=== PATIENT | female | born 1995 | race Hispanic/Latino ===

== ENCOUNTER 2021-12-10 20:12 | Emergency (ER) | payer BC, OTHER ==
--- OUTSIDE RECORDS SUMMARY | 2021-12-10 20:16 | XMS REPORT | Continuity of Care Document ---
:1995 Author Organization [facility] t Address [address] [place] [address] Care Team Providers Name Role Phone Pcp, Patient Does Not Have A Primary Care Physician [phone] Zaheer Arias Attending Clinician Unavailable Narendra Dixon MD Attending Clinician NARENDRA DIXON Attending Clinician Unavailable GC_CCOB_Khjessica_M Attending Clinician Unavailable Nohemi López Attending Clinician [phone] José Luis HARMON, [place] Mondragon Attending Clinician Unavailable Claudio Gordon Attending Clinician CLAUDIO SIMONS Attending Clinician Unavailable Doctor Unassigned, [place] Attending Clinician Unavailable Saranya Wilson Attending Clinician SARANYA AVITIA Attending Clinician Unavailable Lab, Adc Fam Pob I Attending Clinician Unavailable Kiah Alvarez Attending Clinician KIAH ALBA Attending Clinician Unavailable GC_CCOB_Khjessica_M Admitting Clinician Unavailable Payers Payer Name Policy Type Policy Number Effective Date Expiration Date S ray[place] [id number] 2020 00:00:00 [place] Problems Condition Condition Condition Status Onset Resolution Last Treating Co mments Source Name Details Category Date Date Treatment Clinician Date No known No known Disease Unive rs active active ity of problems problems [facility] Allergies, Adverse Reactions, Alerts Allergy Allergy Status Severity Reaction(s) Onset Inactive Treating Comm ents Source Name Type Date Date Clinician NO KNOWN Drug Active Univers ALLERGIE Class ity of S [facility] Social History Social Habit Start Date Stop Date Quantity Comments Source History SDOH University o f Alcohol Frequency [place] [facility] History SDOH University o f Alcohol Std [place] [facility] History SDOH University o f Alcohol Binge [place] [facility] Sex Assigned At Universit y of [facility] Exposure to 2021-11-30 2021-12-10 Not sure [facility] 00:00:00 14:37:00 [facility] (event) [place] Alcohol intake 2021-12-10 2021-12-10 Current drinker Unive rsity of 00:00:00 00:00:00 of alcohol [facility] (finding) [place] Tobacco use and 2014-09-22 2014-09-22 Smokeless tobacco Un iversity of exposure 00:00:00 00:00:00 non-user [facility] Alcohol Comment 2014-09-22 2014-09-22 socially Universit y of 00:00:00 00:00:00 [facility] Smoking Status Start Date Stop Date Source Unknown if ever smoked [facility] Never smoked tobacco [facility] Medications Ordered Filled Start Stop Current Ordering Indication Dosage Frequency Signature Comments Components Source Medication Medication Date Date Medication? Clinician (SIG) Name Name albuterol 2021- No [id number] 2{puff} Inhale 2 Univers 90 08-27 06-17 Puffs ity of mcg/actuati 00:00[place] 04:59 [place] 6 [place] :00 (six) Medical hours as Branch needed for Wheezing or Shortness of Breath for up to 10 days. albuterol 2021- No [id number] 2{puff} Inhale 2 Univers 90 08-27 06-17 Puffs ity of mcg/actuati 00:00: 04:59 [place] inhal[place] :00 (six) Medical hours as Branch needed for Wheezing or Shortness of Breath for up to 10 days. bromphenira 2021- No [id number] 5mL Take 5 mL Univers mine-pseudo 08-27 by mouth 4 i ty of ephedrine-D 00:00: 04:59 (four) Guy as M 00 :00 times Medical mg/5 mL daily as Branch syrup needed for Congestion /Allergies for up to 5 days. bromphenira 2021- No [id number] 5mL Take 5 mL Univers mine-pseudo 08-27 by mouth 4 i ty of ephedrine-D 00:00: 04:59 (four) Guy as M 00 :00 times Medical mg/5 mL daily as Branch syrup needed for Congestion /Allergies for up to 5 days. cyclobenzap 2020-03 Yes [id number] 5mg Take 1 Univers rine 5 mg 2-10 tablet by ity o f tablet 00:00: mouth at [place] [address] bedtime. Medical Branch cyclobenzap 2020-03 Yes [id number] 5mg Take 1 Univers rine 5 mg 2-10 tablet by ity o f tablet 00:00: mouth at [place] [address] bedtime. Medical Branch cyclobenzap 2020-03 Yes [id number] 5mg Take 1 Univers rine 5 mg 2-10 tablet by ity o f tablet 00:00: mouth at [place] [address] bedtime. Medical Branch cyclobenzap 2020-03 Yes [id number] 5mg Take 1 Univers rine 5 mg 2-10 tablet by ity o f tablet 00:00: mouth at [place] 00 bedtime. Medical Branch cyclobenzap 2020-03 Yes [id number] 5mg Take 1 Univers rine 5 mg 2-10 tablet by ity o f tablet 00:00: mouth at [place] 00 bedtime. Medical Branch sulfamethox 2020-03- No [id number] 1{tbl} Take 1 Univers azole-trime 2-10 12-14 tablet by it y of thoprim 00:00: 05:59 mouth 2 [place] (BACTRIM 00 :00 (two) Medical DS) 800-160 times Branch mg per daily for tablet 3 days. buPROPion Yes [id number] 150mg Take 1 Tab Univers XL 7-02 by mouth ity of ([place] XL[place] 150 mg 00 Medical 24 hr Branch tablet buPROPion Yes [id number] 150mg Take 1 Tab Univers XL 7-02 by mouth ity of ([place] XL[place] 150 mg 00 Medical 24 hr Branch tablet buPROPion Yes [id number] 150mg Take 1 Tab Univers XL 7-02 by mouth ity of ([place] XL[place] 150 mg 00 Medical 24 hr Branch tablet buPROPion Yes [id number] 150mg Take 1 Tab Univers XL 7-02 by mouth ity of ([place] XL[place] 150 mg 00 Medical 24 hr Branch tablet buPROPion Yes [id number] 150mg Take 1 Tab Univers XL 7-02 by mouth ity of ([place]. [place] XL[place] 150 mg 00 Medical 24 hr Branch tablet buPROPion Yes [id number] 150mg Take 1 Tab Univers XL 7-02 by mouth ity of ([place]. [place] XL[place] 150 mg 00 Medical 24 hr Branch tablet buPROPion Yes [id number] 150mg Take 1 Tab Univers XL 7-02 by mouth ity of ([place]. [place] XL[place] 150 mg 00 Medical 24 hr Branch tablet Vital Signs Vital Name Observation Time Observation Value Comments Source Systolic blood 2021-12-10 19:46:00 145 mm[Hg] [facility] Diastolic blood 2021-12-10 19:46:00 91 mm[Hg] [facility] [place] Heart rate 2021-12-10 19:39:00 71 /min [facility] Body temperature 2021-12-10 19:39:00 36.5 Johanna [facility] Respiratory rate 2021-12-10 19:39:00 15 /min [facility] Body height 2021-12-10 19:39:00 177.8 cm [facility] Body weight 2021-12-10 19:39:00 162.297 kg [facility] BMI 2021-12-10 19:39:00 51.34 kg/m2 Universi ty of [place] [facility] Oxygen saturation in 2021-12-10 19:39:00 98 /min University of Arterial blood by [facility] Pulse oximetry Branch Systolic blood 2021-08-28 00:24:00 121 mm[Hg] Univer sity of pressure [facility] Diastolic blood 2021-08-28 00:24:00 73 mm[Hg] Unive rsity of pressure [facility] Heart rate 2021-08-28 00:24:00 105 /min [facility] Body temperature 2021-08-28 00:24:00 37.22 Johanna Univ ersity of [facility] Respiratory rate 2021-08-28 00:24:00 16 /min Univ ersity of [facility] Body height 2021-08-28 00:24:00 177.8 cm [facility] Body weight 2021-08-28 00:24:00 183.707 kg [facility] BMI 2021-08-28 00:24:00 58.11 kg/m2 [facility] Oxygen saturation in 2021-08-28 00:24:00 95 /min University of Arterial blood by [facility] Pulse oximetry Branch Systolic blood 2021-03-02 23:03:00 137 mm[Hg] Univer sity of pressure [facility] Diastolic blood 2021-03-02 23:03:00 84 mm[Hg] Unive rsity of pressure [facility] Heart rate 2021-03-02 23:03:00 99 /min [facility]i [facility] Body temperature 2021-03-02 23:03:00 37.89 Johanna Univ ersity of [facility] Respiratory rate 2021-03-02 23:03:00 18 /min Univ ersity of [facility] Body height 2021-03-02 23:03:00 180.3 cm [facility] Body weight 2021-03-02 23:03:00 184.614 kg [facility] BMI 2021-03-02 23:03:00 56.76 kg/m2 [facility] Oxygen saturation in 2021-03-02 23:03:00 98 /min University of Arterial blood by [facility] Pulse oximetry Branch Systolic blood 2020-04-04 23:11:00 134 mm[Hg] Univer sity of pressure [facility] Diastolic blood 2020-04-04 23:11:00 98 mm[Hg] Unive rsity of pressure [facility] Heart rate 2020-04-04 23:11:00 100 /min [facility] Body temperature 2020-04-04 23:11:00 37.06 [facility]anna [facility] height 2020-04-04 23:11:00 180.3 cm [facility] Body weight 2020-04-04 23:11:00 156.491 kg [facility] BMI 2020-04-04 23:11:00 48.12 kg/m2 [facility] Oxygen saturation in 2020-04-04 23:11:00 96 /min University Arterial blood by [facility] Pulse oximetry Branch Procedures Procedure Date / Time Performing Clinician Source Performed ASSIGNMENT OF BENEFITS 2021-08-28 00:19:57 Doctor Unassigned, [facility] [place] [facility] POCT URINALYSIS 2021-03-02 23:12:00 Raisa Lee [facility] NO SHOW OR MISSED 2021-03-02 22:57:28 Doctor Unassigned, [facility] APPOINTMENT POLICY [place] [facility] h ACKNOWLEDGEMENT POCT FLU A AND B 2020-04-04 23:53:00 Sadi [facility] (MOLECULAR) [facility] POCT GRP A STREP 2020-04-04 23:52:00 Sadi [facility] (MOLECULAR) [facility] Encounters Start End Encounter Admission Attending Care Care Encounter Source Date/Time Date/Time Type Type Clinicians Facility Department ID 2021-10-24 Out[facility] [id number] Common 16:02:03 Zaheer [facility] 2021-09-28 Outpatient Arias, [facility] [id number] Common 08:19:02 Zaheer [id number] [facility] 2021-09-27 Outpatient Arias, [facility] [id number] Common 10:31:03 Zaheer [id number] [facility] 2021-12-10 2021-12-10 Urgent [facility] [id number] Univers 14:40:00 15:00:00 Care [facility] [id number] it y of [place] [id number] Guy as BIJU?BLEA [id number] [address] MEDICAL OFFICE BUILDING 2021-12-10 2021-12-10 Outpatient R [facility] [id number] Univers 14:40:00 14:40:00 [id number] y [facility] 2021-12-10 2021-12-10 [facility] [id number] Univers 14:40:00 14:40:00 [facility] 2021-09-27 2021-09-27 ambulatory [facility] [id number] Common 00:00:00 00:00:00 [facility] 2021-09-17 2021-09-17 Outpatient GC_CCOB_Kha PRIV PRIV [id number] [facility] 12:59:00 12:59:00 n_M [id number] Medica l 2021-08-30 2021-08-30 Outpatient GC_CCOB_Kha PRIV PRIV [id number] [facility] 04:38:00 04:38:00 n_M [id number] Medica l 2021-08-30 2021-08-30 Outpatient López, PRIV PRIV [id number] 00:00:00 00:00:00 Nohemi [id number] 2021-08-28 2021-08-28 Letter JOSSY Ordonez [id number] Univers 00:00:00 00:00:00 (Out) [place] [id number] it y of [facility] [id number] Guy as [id number] [address] 2021-08-27 2021-08-27 Urgent [facility] [id number] Univers 20:20:00 20:20:00 Care Claudio [facility] [id number] ity of [place] [id number] Guy as BIJU?BLEA [id number] Me robert [address] MEDICAL OFFICE BUILDING 2021-08-27 2021-08-27 Outpatient R KRISTYN, [facility] [id number] Univers 20:20:00 19:42:52 CLAUDIO ity o f [facility] 2021-08-27 2021-08-27 Outpatient R [facility] [id number] Univers 19:20:00 19:20:00 [id number] ity of [facility] 2021-08-27 2021-08-27 Orders Doctor FENTON [id number] Univers 00:00:00 00:00:00 Only Unassigned, DANIELE [id number] ity of [place] [facility] [id number] Guy as [id number] [address] 2021-08-17 2021-08-17 Outpatient GC_CCOB_Kha PRIV PRIV [id number] [facility] 01:24:00 01:24:00 n_M [id number] Medica l 2021-08-09 2021-08-09 Outpatient GC_CCOB_Kha PRIV PRIV [id number] [facility] 04:17:00 04:17:00 n_M [id number] Medica l 2021-08-09 2021-08-09 Outpatient López, PRIV PRIV [id number] 00:00:00 00:00:00 Nohemi [id number] 2021-08-05 2021-08-05 Outpatient GC_CCOB_Kha PRIV PRIV [id number] [facility] 01:11:00 01:11:00 n_M [id number] Medica l 2021-08-05 2021-08-05 Outpatient GC_CCOB_Kha PRIV PRIV [id number] [facility] 01:11:00 01:11:00 n_M [id number] Medica l 2021-07-30 2021-07-30 Outpatient GC_CCOB_Kha PRIV PRIV [id number] [facility] 10:44:00 10:44:00 n_M [id number] Medica l 2021-03-02 2021-03-02 Outpatient R ZACK [facility] [id number] Univers 17:00:00 17:38:09 NARENDRA ity [facility] 2021-03-02 2021-03-02 [facility] [id number] Univers 16:59:05 17:19:05 Care Narendra [facility] [id number] it y of [place] [id number] Guy as BIJU?BLEA [id number] Ut rauldeborah HARRY [address] [place] MEDICAL OFFICE BUILDING 2021-03-02 2021-03-02 Outpatient R [facility] [id number] Univers 17:00:00 17:00:00 [id number] ity [facility] 2021-03-02 2021-03-02 Orders Doctor JOSSY 1.2.840.114 [id number] Univers 00:00:00 00:00:00 Only Unassigned, DANIELE [id number] ity of [place] [facility] [id number] Guy as [id number] [address] 2020-04-04 2020-04-04 Kd [facility] [id number] Univers 16:59:31 18:18:05 Care Saranya [facility] [id number] it y of [place] [id number] Guy as Professio [id number] 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 [id number] [id number] Univers 13:36:08 13:51:08 Visit Kiah [facility] [id number] ity of [place] [id number] Guy as Professio [id number] Ut dicvt nal [address] [place] [address] 2020-04-032020-04-03 Outpatient R LEAH, [facility] [id number] Univers 13:35:00 13:35:00 KIAH anderson of [facility] Results Test Description Test Time Test Comments Results Result Comments Source POCT URINALYSIS W SPECIFIC GRAVITY 2021-03-02 23:13:00 Test Item Value Reference Range Interpretation Comme nts POCT U SP GRAV (test code = 1.020 mg/dl 1.005-1.025 A 3255) POCT PH U (test code = 3254) 5 mg/dl 5-8 POCT U LEUK EST (test code = negative Negative - Negative 3263) POCT U NIT (test code = 3262) negative Negative - Negative POCT U PROT (test code = 3259) negative Negative - Negative POCT U GLU (test code = 3256) negative Negative - Negative POCT U KETONE (test code = negative Negative - Negative 3258) POCT U UROBILI (test code = normal 0.2-1 3260) POCT U BILI (test code = 3261) negative Negative - Negative POCT U BLD (test code = 3257) negative Negative - Negative POCT U COLOR (test code = 3266) dark POCT U APPEAR (test code = clear 3267) BRAVO (test code = BRAVO) accurate development and interpretation of all internal controls Lab Interpretation (test code = Abnormal 24500-0) [facility] GRP A STREP (MOLECULAR)2020-04-05 00:03:00 Test Item Value Reference Range Interpretation Comments POCT GP A STREP (test code = negative Negative - Negative 46878-4) Lab Interpretation (test code = Normal 28531-0) [facility]-04-05 00:03:00 Test Item Value Reference Range Interpretation Comments POCT INFLUENZA A (test code = negative Negative - Negative 3840) POCT INFLUENZA B (test code = negative Negative - Negative 3841) Lab Interpretation (test code = Normal 72421-8) [facility]
[2021-12-10 21:11] LABS: Absolute Lymphocytes (CBC) 1.8 K/uL (0.7-4.9); Hematocrit 39.1 % (36.0-45.0); Lymphocytes % 17.4 % (15.3-44.8); MPV 10.9 fL (7.6-11.3)
[2021-12-10 21:11] LABS: Urine Blood Negative (Negative); Urine Glucose Negative (Negative); Urine Protein 1+ (Negative); Urine Specific Gravity >=1.030 (1.005-1.030); Urine pH 5.5 (5.0-7.0)
[2021-12-10 21:24] LABS: Potassium 3.5 mmol/L (3.5-5.1)
[2021-12-10 21:46] LABS: Urine Bacteria 20-50 /HPF (<20); Urine Crystals Unidentified Few /HPF (None Seen); Urine Mucus 4+ /HPF (None Seen); Urine RBC <5 /HPF (None Seen)
--- NOTE | 2021-12-10 22:14 | RAD REPORT ---
EXAM DESCRIPTION: CT - Stone Protocol - 12/10/2021 9:54 pm CLINICAL HISTORY: Abdominal pain. Urinary retention COMPARISON: None. TECHNIQUE: Computed axial tomography of the abdomen pelvis was obtained without oral or IV contrast. Lack of IV and oral contrast limits evaluation of solid organs, appendix, bowel, and vessels. [place] reformatted images were obtained and reviewed. All CT scans are performed using dose optimization technique as appropriate and may include automated exposure control or mA/KV adjustment according to patient size. FINDINGS: Mild left hydronephrosis. Tiny bilateral renal calculi. 2 millimeter calculus left UVJ. Fo rod catheter within the bladder. Fatty liver Spleen, pancreas and adrenals unremarkable. Postsurgical changes involve stomach There is no evidence of diverticulitis. The appendix appears normal Spondylosis L5-S1 IMPRESSION: 2 millimeter calculus left UVJ resulting in mild left hydronephrosis
--- NOTE | 2021-12-10 23:20 | EDPHYS ---
Physician Documentation [facility] Name: Mylene Ty Age: 26 yrs Sex: Female : 1995 Arrival Date: 12/10/2021 Time: 20:19 Bed 17 Private MD: ED Physician Peter Phillips HPI: 12/10 23:17 This 26 yrs old Female presents to ER via Ambulatory with complaints of kb Urinary Problem. 23:17 The patient presents with urinary symptoms, urinary retention. Onset: The kb symptoms/episode began/occurred today. Modifying factors: The symptoms are alleviated by nothing, the symptoms are aggravated by nothing. Associated signs and symptoms: Pertinent positives: urinary retention, suprapubic pain, Pertinent negatives: dysuria, fever. Severity of symptoms: At their worst the symptoms were moderate, in the emergency department the symptoms are unchanged. The patient has not experienced similar symptoms in the past. The patient has not recently seen a physician. Pt states she hasn't urinated since 1900 yesterday and is having suprapubic pain/fullness. 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 - Social history:: Smoking status: Patient denies any tobacco usage or history of. ROS: 23:16 Constitutional: Negative for fever, chills, and weight loss. kb 23:16 : Positive for urinary retention and suprapubic pain. 23:16 All other systems are negative. Exam: 23:16 Constitutional: This is a well developed, well nourished patient who is awake, alert, kb and in no acute distress. Head/Face: Normocephalic, atraumatic. ENT: Moist Mucous membranes Cardiovascular: Regular rate and rhythm with a normal S1 and S2. No gallops, murmurs, or rubs. No pulse deficits. Respiratory: Respirations even and unlabored. No increased work of breathing. Talking in full sentences Skin: Warm, dry with normal turgor. Normal color. MS/ Extremity: Pulses equal, no cyanosis. Neurovascular intact. Full, normal range of motion. Neuro: Awake and alert, GCS 15, oriented to person, place, time, and situation. Moves all extremities. Normal gait. Psych: Awake, alert, with orientation to person, place and time. Behavior, mood, and affect are within normal limits. 23:16 Abdomen/GI: Inspection: abdomen appears normal, Bowel sounds: normal, in all quadrants, Palpation: soft, in all quadrants, moderate abdominal tenderness, in the suprapubic area. Vital Signs: 20:22 BP 162 / 76; Pulse 72; Resp 18 S; Temp 97.3(TE); Pulse Ox 100% on R/A; Weight 161.93 kg as6 (R); Height 5 ft. 11 in. (180.34 cm) (R); Pain 8/; 12/11 01:27 BP 151 / 79; Pulse 55; Resp 16; Pulse Ox 99% ; ja4 12/10 20:22 Body Mass Index 49.79 (161.93 kg, 180.34 cm) as6 MDM: 12/10 20:26 Patient medically screened. kb 23:15 Data reviewed: vital signs, nurses notes. Data interpreted: Pulse oximetry: on room air kb is 100 %. Interpretation: normal. Counseling: I had a detailed discussion with the patient and/or guardian regarding: the historical points, exam findings, and any diagnostic results supporting the discharge/admit diagnosis, lab results, radiology results, the need for outpatient follow up, a urologist, to return to the emergency department if symptoms worsen or persist or if there are any questions or concerns that arise at home. 12/11 00:59 ED course: Pt had one episode of hematemesis. Call placed to Dr Suarez's call service. kb Awaiting callback. [facility] [phone]. 01:05 ED course: Callback received from Dr Suarez's associate. Recommends protonix and outpatient kb follow up with Dr Suarez. Pt will call tomorrow for follow up and return for any more episodes of hematemesis. . 12/10 20:27 Order name: Urine Microscopic Only; Complete Time: 21:53 kb 12/10 20:27 Order name: CBC with Diff; Complete Time: 21:32 kb 12/10 20:27 Order name: Basic Metabolic Panel; Complete Time: 21:32 kb 12/10 21:12 Order name: Urine Dipstick-Ancillary; Complete Time: 21:13 EDMS 12/10 21:31 Order name: Urine --Ancillary (enter results); Complete Time: 21:53 ja4 12/10 21:02 Order name: CT Stone Protocol; Complete Time: 22:24 kb 12/11 00:19 Order name: Gastric Occult Blood; Complete Time: 00:39 EDMS 12/10 20:27 Order name: Urine Dipstick-Ancillary (obtain specimen); Complete Time: 21:30 kb 12/10 20:27 Order name: Urine Test (obtain specimen); Complete Time: 21:30 kb 12/10 20:27 Order name: Bladder Scanner; Complete Time: 21:30 kb 12/10 20:27 Order name: Cerda; Complete Time: 21:30 kb 12/10 20:27 Order name: IV Start; Complete Time: 21:30 kb 12/10 23:16 Order name: Cerda: remove; Complete Time: 00:30 kb 12/10 23:38 Order name: Gastrocult kb Administered Medications: 12/10 23:40 Drug: Magnesium Sulfate 1 grams Route: IVPB; Infused Over: 1 hrs; [address]; 23:40 Drug: Flomax (tamsulosin) 0.4 mg Route: PO; [facility] 23:40 Drug: NS 0.9% 1000 ml Route: IV; Rate: 1000 ml; Site: left antecubital; [facility] 23:40 Drug: Ketorolac 15 mg Route: IVP; Site: left antecubital; [facility] 23:40 Drug: Zofran (Ondansetron) 4 mg Route: IVP; Site: left antecubital; [facility] 23:41 Drug: Rocephin (cefTRIAXone) 1 grams Route: IV; Rate: calculated rate; Site: [facility]; 12/11 01:20 Drug: ProTONIX (pantoprazole) 40 mg Route: IVP; Site: left antecubital; [facility] Disposition: 03:23 Co-signature as Attending Physician, Peter MACIAS was immediately available onsite ms3 in the emergency department for consultation in the care of the patient. Disposition Summary: 12/11/21 01:06 Discharge Ordered Location: Home(12/11/21 01:06) kb Condition: Stable(12/11/21 01:06) kb Diagnosis - Calculus of ureter(12/11/21 01:06) kb - Hematemesis kb - UTI/ Urinary tract infection, site not specified kb Followup: kb - With: Emergency Department - When: As needed - Reason: Worsening of condition Followup: kb - With: Private Physician - When: 2 - 3 days - Reason: Recheck today's complaints, Continuance of care, Re-evaluation by your physician Discharge Instructions: - Discharge Summary Sheet kb - Hematemesis kb - Kidney Stones, [id number] kb Forms: - Medication Reconciliation Form kb - Thank You Letter kb - Antibiotic Education kb - Prescription Opioid Use kb - Work release form ja4 Prescriptions: - Flomax 0.4 mg Oral capsule - take 1 capsule by ORAL route once daily 1/2 hour following the same meal each kb day; 10 capsule; Refills: 0, Product Selection Permitted - Protonix 40 mg Oral Tablet - take 1 tablet by ORAL route once daily; 30 tablet; Refills: 0, Product kb Selection Permitted - Zofran 4 mg Oral Tablet - take 1 tablet by ORAL route every 6 hours As needed; 20 tablet; Refills: 0, kb Product Selection Permitted - Augmentin 875-125 mg Oral Tablet - take 1 tablet by ORAL route every 12 hours for 10 days; 20 tablet; Refills: 0, kb Product Selection Permitted Signatures: Dispatcher [employer] EDMelody Sun, CHECO ARRIOLAP-Peter Liu DO DO ms3 Sage Laurent RN RN as6 Barry Izaguirre RN RN ja4 Corrections: (The following items were deleted from the chart) 00:48 12/10 23:19 Home kb kb 12/11 00:48 12/10 23:19 Stable kb kb 12/11 00:48 12/10 23:19 Calculus of ureter kb kb
--- NOTE | 2021-12-10 23:20 | ER ---
Nurse's Notes [facility] Name: Mylene Ty Age: 26 yrs Sex: Female : 1995 Arrival Date: 12/10/2021 Time: 20:19 Bed 17 Private MD: Diagnosis: Calculus of ureter;Hematemesis;UTI/ Urinary tract infection, site not specified Presentation: 12/10 20:22 Chief complaint: Patient states: "I haven't been able to pee since yesterday about 7 as6 pm". Coronavirus screen: At this time, the client does not indicate any symptoms associated with coronavirus-19. Ebola Screen: No symptoms or risks identified at this time. Initial Sepsis Screen: Does the patient meet any 2 criteria? No. Patient's initial sepsis screen is negative. Does the patient have a suspected source of infection? No. Patient's initial sepsis screen is negative. Risk Assessment: Do you want to hurt yourself or someone else? Patient reports no desire to harm self or others. Onset of symptoms was December 09, 2021. 20:22 Method Of Arrival: Ambulatory as6 20:22 Acuity: ZAIRE 4 as6 Triage Assessment: 20:27 General: Appears uncomfortable, Behavior is calm, cooperative. Pain: Complains of pain as6 in suprapubic area. : Reports inability to void, since 12/09/21. 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 - Social history:: Smoking status: Patient denies any tobacco usage or history of. Screenin:23 Abuse screen: Denies threats or abuse. Nutritional screening: No deficits noted. ja4 Tuberculosis screening: No symptoms or risk factors identified. Fall Risk IV access (20 points). Assessment: 21:22 General: Appears uncomfortable, obese, Behavior is calm, cooperative, appropriate for ja4 age. Pain: Complains of pain in pelvis, bladder area Pain currently is 6 out of 10 on a pain scale. Pain began 2-3 days ago. Neuro: No deficits noted. : Bladder is distended Reports inability to void, pain in suprapubic area. Vital Signs: 20:22 BP 162 / 76; Pulse 72; Resp 18 S; Temp 97.3(TE); Pulse Ox 100% on R/A; Weight 161.93 kg as6 (R); Height 5 ft. 11 in. (180.34 cm) (R); Pain 8/10; 12/11 01:27 BP 151 / 79; Pulse 55; Resp 16; Pulse Ox 99% ; ja4 12/10 20:22 Body Mass Index 49.79 (161.93 kg, 180.34 cm) as6 ED Course: 12/10 20:19 Patient arrived in ED. ja2 20:21 Melody Greene FNP-C is PHCP. kb 20:21 Peter Phillips DO is Attending Physician. kb 20:26 Triage completed. as6 20:27 Arm band placed on. as6 20:28 Barry Izaguirre, FAUSTINO is Primary Nurse. ja4 21:23 Bed in low position. Call light in reach. Side rails up X 1. ja4 21:23 No provider procedures requiring assistance completed. Inserted saline lock: 20 gauge ja4 in left antecubital area, using aseptic technique. Blood collected. 21:56 CT Stone Protocol In Process Unspecified. EDMS 12/11 01:27 IV discontinued, intact, bleeding controlled, No redness/swelling at site. Pressure ja4 dressing applied. Administered Medications: 12/10 23:40 Drug: Magnesium Sulfate 1 grams Route: IVPB; Infused Over: 1 hrs; Site: left ja4 antecubital; 23:40 Drug: Flomax (tamsulosin) 0.4 mg Route: PO; ja4 23:40 Drug: NS 0.9% 1000 ml Route: IV; Rate: 1000 ml; Site: left antecubital; ja4 23:40 Drug: Ketorolac 15 mg Route: IVP; Site: left antecubital; ja4 23:40 Drug: Zofran (Ondansetron) 4 mg Route: IVP; Site: left antecubital; ja4 23:41 Drug: Rocephin (cefTRIAXone) 1 grams Route: IV; Rate: calculated rate; Site: left ja4 antecubital; 12/11 01:20 Drug: ProTONIX (pantoprazole) 40 mg Route: IVP; Site: left antecubital; ja4 Medication: 12/10 21:23 VIS not applicable for this client. ja4 Outcome: 23:19 Discharge ordered by . celine 12/11 01:06 Discharge ordered by . celine 01:27 Discharged to home ambulatory. ja4 01:27 Condition: good 01:27 Discharge instructions given to patient, Instructed on discharge instructions, follow up and referral plans. medication usage, Demonstrated understanding of instructions, follow-up care, medications, Prescriptions given X 4. 01:29 Patient left the ED. ja4 Signatures: Dispatcher [employer] EDMS Melody Greene, FUNERAL DIRECTOR/EMBALMER-C FUNERAL DIRECTOR/EMBALMER-Jessy Campos Ashby, RN RN as6 Barry Izaguirre RN RN ja4
[2021-12-10] MEDS ORDERED: CEFTRIAXONE 1000 MG/VIAL ONE (23:27)
[2021-12-10] MEDS ORDERED: KETOROLAC 30 MG/ML INJ ONE (23:27)
[2021-12-10] MEDS ORDERED: MAGNESIUM SULFATE 1 gm IVPB 1 GM/100 ML BAG IV ONE (23:27)
[2021-12-10] MEDS ORDERED: TAMSULOSIN 0.4 MG SR CAP ONE (23:27)
[2021-12-10] MEDS ORDERED: NA CHLORIDE 0.9% 1,000 ML ONE (23:27)
[2021-12-10] MEDS ORDERED: ONDANSETRON 4 MG/2 ML VIAL ONE (23:36)
[2021-12-11] MEDS ORDERED: PANTOPRAZOLE 40 MG INJ ONE (01:16)
[2021-12-12 10:37] VITALS: BP 162/76; TEMP 97.3; O2SAT 100
== END 2021-12-11 01:29 | disposition home or self-care (01) ==
LOC: ER 20:12
DX: N20.1 Calculus of ureter (principal); N39.0 Urinary tract infection, site not specified; K92.0 Hematemesis
CPT/HCPCS: 85025; 80048; 36415; 81025; 83986; 82271; 76377; 74176; C9113; J3475; J7030; J2405; 81003; 81015; 96374; 96375; 99284